=== PATIENT | male | born 1935 | race Caucasian/White ===

== ENCOUNTER 2017-10-27 08:54 | Observation (INO) | payer MEDICARE, BC ==
[2017-10-27] MEDS ORDERED: Sodium Chloride 0.9% 1,000 ML IV SCH (09:45)
[2017-10-27] MEDS ORDERED: Morphine 10 MG/ML SDV IV ONE ×2 (10:21→20:45)
[2017-10-27] MEDS ORDERED: Acetaminophen/HYDROcodone 325-5 MG Tab ONE ×2 (11:38→11:39)
[2017-10-27] MEDS: Metoclopramide 10 MG/2 ML SDV ONE ×2 (12:10→20:32)
[2017-10-27] MEDS ORDERED: HYDROmorphone 2 MG/ML SDV ONE (13:02)
[2017-10-27] MEDS ORDERED: Morphine 10 MG/ML Syringe ONE (20:02)
[2017-10-27] MEDS ORDERED: Morphine 5 MG/ML SDV IV ONE (20:05)
[2017-10-27] MEDS ORDERED: Morphine 2 MG/ML Syringe IV PRN (20:29)
[2017-10-27] MEDS ORDERED: Acetaminophen/HYDROcodone 325-10 MG Tab ONE (21:49)
[2017-10-27] MEDS: Acetaminophen/HYDROcodone 325-5 MG Tab PO PRN (21:50)
[2017-10-28] MEDS ORDERED: Ondansetron 4 MG/2 ML SDV IV PRN (00:43)
[2017-10-28] MEDS ORDERED: Calcium Carbonate/Vitamin D3 1500 MG-400 Units Tab PO SCH (08:00)
[2017-10-28] MEDS ORDERED: amLODIPine 10 MG Tab PO SCH (08:00)
[2017-10-28] MEDS ORDERED: Metoprolol Succinate 25 MG Tab.ER PO SCH (08:00)
[2017-10-28] MEDS ORDERED: Aspirin 81 MG Tab.Chew PO SCH (08:00)
[2017-10-28] MEDS: Acetaminophen/HYDROcodone 325-5 MG Tab PO PRN (08:07)
--- NOTE | 2017-10-28 08:32 | CT ---
DATE OF SERVICE: 10/27/17 CLINICAL DATA: [facility] UNENHANCED CHEST CT: Multislice acquisition through the chest without IV contrast was performed. No priors. There are mild atelectatic changes in the dependent portion of both lungs. There is a 5 mm nodule within the right middle lobe. The lungs are otherwise clear. No pneumothorax. No pleural effusions. The heart size is normal. There are coronary artery calcifications. The patient is status post aortic valve replacement. There is mild prominence of the ascending aorta. It measures 4.2 cm in diameter. No hilar or mediastinal adenopathy. No evidence of mediastinal hematoma. There is a small hiatal hernia. No displaced fractures. IMPRESSION: No acute abnormalities. A 5 mm nodule right middle lobe. If the patient is high risk, a [address] is recommended. If the patient is low risk, no followup required. Other findings as discussed above. UNENHANCED ABDOMEN AND PELVIC CT: Multislice acquisition through the abdomen and pelvis without IV or oral contrast was performed. No priors. There is a small hiatal hernia. The unenhanced liver appears normal. There are multiple calcified gallstones noted within the dependent gallbladder. No pericholecystic fluid. The spleen appears normal. The pancreas appears normal. The right and left adrenals appear normal. There is mild atrophy of both kidneys. No nephrocalcinosis or nephrolithiasis. No hydronephrosis or hydroureter. There is a small amount of fluid within the bladder. It appears normal. The appendix is not dilated. There is diverticulosis of the descending and sigmoid colon. No evidence of diverticulitis. There is an umbilical hernia containing fat. There are bilateral inguinal hernias containing fat. There is a 3.8 cm infrarenal abdominal aortic aneurysm. No evidence of leakage. No free air. No free fluid. No dilated loops of bowel. No adenopathy. There are faint lucencies through the right transverse processes of L2 and L3 suspicious for nondisplaced fractures. No displaced fractures. There does appear to be some fluid in the right scrotum. Scrotal ultrasound is recommended. No other significant findings. [id number] [facility]
--- NOTE | 2017-10-28 08:38 | ER ---
DATE OF SERVICE: 10/27/2017 This is ER summary as well as an observation admit note. 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 Apparently, he went airborne in the forklift and landed back into a hard chair. There was no crush injury, it is just that he landed back hard into his chair after going airborne, he immediately complained of back pain. He did not ambulate, they came and got him out of the cab. He denies that he struck his head. No loss of consciousness. No neck pain noted. When he takes a deep breath, he states his lower back hurts. He denies abdominal pain. PHYSICAL EXAMINATION: HEAD: Atraumatic, normocephalic. Pupils were equal and reactive. Throat is clear. NECK: Supple. Nontender. Range of motion intact. LUNGS: Good air movement. No wheezes, no crackles. HEART: Regular rate and rhythm. Normal S1, S2. ABDOMEN: Soft, nondistended, nontender. Positive bowel sounds. BACK: He has tenderness to palpation of the lumbar paraspinal muscle, except of the lumbar paraspinal muscles, he is able to do straight leg raising minimally. CT scan revealed incidental infrarenal aortic aneurysm 3.5 x 3.2 cm and an ascending aortic aneurysm 4.[address], I was told that this was initially recorded as negative, however when I reviewed it with the radiologist he though that on one of his views, there was a possibility of a transverse process lucencies that could be a fracture. ASSESSMENT: 1. Back pain after injury. Rule out transverse lumbar fracture. 2. Intractable pain. PLAN: In the emergency room, he received IV fluids and IV pain medications, which included morphine and Reglan. However, he still got lightheaded, dizzy, and nauseous with sitting up. We have been tried to give him Antivert, give him some fluids, and some more morphine, who remained in pain. It was felt he should be admitted to the floor for pain management and consideration should be made for an MRI of his back. CARMEN/MIKE /[id number] CAMI
--- NOTE | 2017-10-28 12:33 | PCM.DCSUM1 ---
Discharge Summary - Hospital Course Brief History: 82 yr male admit to observation 10-27-17 for management of pain and observation, post fork lift accident and injury to back. Diagnosis: Stroke: No - Discharge Data Discharge Date: 10/28/17 Discharge Disposition: Home, Self-Care 01 Condition: Good - Patient Summary/Data Recommended Follow-up Testing/Procedures: MRI tomorrow - Patient Instructions Diet: Heart Healthy Diet Activity: Rest and Relax Today Activity, Other: No bending, twisting, jarring of spine until results of MRI Driving: Do Not Drive Showering/Bathing: May Shower (with assist, prevent falls) Notify Provider of: Increased Pain (Monitor for headache, nausea, increase in pain. Limit activity to up in house today and rest and relax.) - Discharge Plan *PRESCRIPTION DRUG MONITORING PROGRAM REVIEWED*: No *COPY OF PRESCRIPTION DRUG MONITORING REPORT IN PATIENT RUDY: No Prescriptions/Med Rec: Hydrocodone/Acetaminophen [Hydrocodon-Acetaminophen 5-325] 1 each PO Q4HR #24 tablet Home Medications: Home Meds Hydrocodone/Acetaminophen [Hydrocodon-Acetaminophen 5-325] 1 each PO Q4HR #24 tablet 10/28/17 [Rx] Patient Handouts: Acetaminophen; Hydrocodone tablets or capsules, Lumbosacral Strain Forms: ED Department Discharge Referrals: PCP,None [Primary Care Provider] - - Discharge Summary/Plan Comment Discharge Summary/Plan Comment: Follow-up MRI tomorrow. Limit activity to up in home today, watch for any increase in pain, headache or nausea. May use hydrocodone (5/325) 1-2 tablets every 4-6 hour as needed for pain. No twisting, bending or jarring of spine. Return to PCP for follow-up end of the week. Pt in agreement with plan and follow-up. - Patient Data Vitals - Most Recent: Last Vital Signs Temp 99 F 10/28/17 08:00 Pulse 69 10/28/17 08:05 Resp 16 10/28/17 08:00 BP 146/68 H 10/28/17 08:06 Pulse Ox 93 L 10/28/17 08:00 Weight - Most Recent: 220 lb I&O - Last 24 hours: Intake & Output 10/27/17 10/28/17 10/28/17 22:59 06:59 14:59 Intake Total 1799 Output Total 1 Balance 1798 Med Orders - Current: Current Medications Hydrocodone Bitart/Acetaminophen ([place] 325-5 Mg) 2 tab PO Q4H PRN PRN Reason: Pain Last Admin: 10/28/17 08:07 Dose: 2 tab Amlodipine Besylate (Norvasc) 10 mg PO DAILY [facility] Last Admin: 10/28/17 08:06 Dose: 10 mg Aspirin (Aspirin) 81 mg PO DAILY [facility] Last Admin: 10/28/17 08:05 Dose: 81 mg Atorvastatin Calcium (Lipitor) 10 mg PO BEDTIME [facility] Calcium Carbonate (Caltrate 600+D 1500 Mg-400 Units) 1 tab PO DAILY [facility] Last Admin: 10/28/17 08:06 Dose: 1 tab Sodium Chloride (Normal Saline) 1,000 mls @ 150 mls/hr IV ASDIRECTED [facility] Last Admin: 10/27/17 09:12 Dose: 150 mls/hr Metoprolol Succinate (Toprol Xl) 25 mg PO DAILY [facility] Last Admin: 10/28/17 08:05 Dose: 25 mg Morphine Sulfate (Morphine) 2 mg IV Q4H PRN PRN Reason: Pain Ondansetron HCl (Zofran) 4 mg IV Q4H PRN PRN Reason: Nausea/Vomiting Discontinued Medications Hydrocodone Bitart/Acetaminophen ([place] 325-5 Mg) Confirm Administered Dose 1 tab .ROUTE .STK-MED ONE Stop: 10/27/17 11:39 Last Admin: 10/27/17 20:32 Dose: Not Given Hydrocodone Bitart/Acetaminophen ([place] 325-5 Mg) Confirm Administered Dose 1 tab .ROUTE .STK-MED ONE Stop: 10/27/17 11:40 Last Admin: 10/27/17 20:32 Dose: Not Given Hydrocodone Bitart/Acetaminophen ([place] 325-10 Mg) Confirm Administered Dose 1 tab .ROUTE .STK-MED ONE Stop: 10/27/17 21:50 Last Admin: 10/27/17 21:50 Dose: 1 tab Hydromorphone HCl (Dilaudid) Confirm Administered Dose 2 mg .ROUTE .STK-MED ONE Stop: 10/27/17 13:03 Last Admin: 10/27/17 12:55 Dose: 2 mg Meclizine HCl (Antivert) Confirm Administered Dose 50 mg .ROUTE .STK-MED ONE Stop: 10/27/17 12:12 Last Admin: 10/27/17 12:05 Dose: 50 mg Metoclopramide HCl (Reglan) Confirm Administered Dose 10 mg .ROUTE .STK-MED ONE Stop: 10/27/17 12:12 Last Admin: 10/27/17 20:32 Dose: Not Given Morphine Sulfate (Morphine) 4 mg IV ONETIME ONE Stop: 10/27/17 10:22 Last Admin: 10/27/17 10:24 Dose: 4 mg Morphine Sulfate (Morphine) Confirm Administered Dose 10 mg .ROUTE .STK-MED ONE Stop: 10/27/17 20:03 Last Admin: 10/27/17 20:32 Dose: Not Given Morphine Sulfate (Morphine) 4 mg IV ONETIME ONE Stop: 10/27/17 20:06 Last Admin: 10/27/17 20:10 Dose: 4 mg Morphine Sulfate (Morphine) 4 mg IV ONETIME ONE Stop: 10/27/17 20:46 Last Admin: 10/27/17 23:17 Dose: Not Given
[2017-10-28] MEDS ORDERED: atorvaSTATin 10 MG Tab PO SCH (20:00)
== END 2017-10-28 13:02 | disposition home or self-care (01) ==
LOC: LB.ED 08:54 → LB.MS 13:30
PROVIDERS: ADMIT Family Medicine; ATTEND Family Medicine
DX: M54.9 Dorsalgia, unspecified (principal)
CPT/HCPCS: 36415; 71250; 74176; 80048; 81001; 85025; 93005; 96361; 96374; 99284-25; A0425; A0429; A9270-GY; J1170; J2270; J2765; J7030

== ENCOUNTER 2017-12-23 23:34 | Emergency (ER) | payer MEDICARE, BC ==
--- NOTE | 2017-12-25 10:17 | EDM.PDOC ---
ED HPI GENERAL MEDICAL PROBLEM - General Chief Complaint: General Stated Complaint: URINARY RETENTION Time Seen by Provider: 12/23/17 23:50 Source of Information: Reports: Patient History Limitations: Reports: No Limitations - History of Present Illness INITIAL COMMENTS - FREE TEXT/NARRATIVE: This is an 82yo M who recently underwent a cystoscopy earlier today and comes in with urinary retention and pressure. Denies any fever or chills or other concerns. Onset: Gradual Duration: Day(s): Location: Reports: Pelvis Quality: Reports: Pressure Bladder Pain Score (Numeric/FACES): 7 - Related Data Allergies Allergy/AdvReac Type Severity Reaction Status Date / Time No Known Allergies Allergy Verified 12/23/17 23:34 Home Meds: Home Meds Hydrocodone/Acetaminophen [Hydrocodon-Acetaminophen 5-325] 1 each PO Q4HR #24 tablet 10/28/17 [Rx] Past Medical History HEENT History: Reports: Hard of Hearing, Impaired Vision Cardiovascular History: Reports: High Cholesterol, Other (See Below) Other Cardiovascular History: valve replacement Genitourinary History: Reports: Other (See Below) Other Genitourinary History: currently has bladder cancer Hematologic History: Reports: None Oncologic (Cancer) History: Reports: Bladder - Infectious Disease History Infectious Disease History: Reports: Chicken Pox - Past Surgical History Male Surgical History: Reports: None Social & Family History - Family History Family Medical History: Noncontributory - Tobacco Use Smoking Status *Q: Unknown Ever Smoked Second Hand Smoke Exposure: No - Caffeine Use Caffeine Use: Reports: Coffee - Recreational Drug Use Recreational Drug Use: No ED ROS GENERAL - Review of Systems Review Of Systems: ROS reveals no pertinent complaints other than HPI. ED EXAM, GENERAL - Physical Exam Exam: See Below Exam Limited By: No Limitations General Appearance: Alert, WD/WN, Mild Distress Nose: Normal Inspection Throat/Mouth: Normal Inspection Head: Atraumatic, Normocephalic Neck: Normal Inspection Respiratory/Chest: No Respiratory Distress Cardiovascular: Normal Peripheral Pulses GI/Abdominal: Tender Course - Vital Signs Last Recorded V/S: Last Vital Signs Temp 35.7 C 12/23/17 23:35 Pulse 74 12/23/17 23:35 Resp 20 12/23/17 23:35 BP 162/65 H 12/23/17 23:35 Pulse Ox 100 12/23/17 23:35 - Re-Assessments/Exams Free Text/Narrative Re-Assessment/Exam: Resolution of symptoms with chicas cath placed. Departure - Departure Time of Disposition: 00:30 Disposition: Home, Self-Care 01 Condition: Good Clinical Impression: Urinary (tract) obstruction - Discharge Information Instructions: Indwelling Urinary Catheter Care, Adult, [id number], Acute Urinary Retention, Male, [id number] Forms: ED Department Discharge Additional Instructions: Keep urinary catheter in place through tonight. Call your regular urologist tomorrow, 12/24/2017, for further instructions. After receiving instructions from your urologist, you can call [facility] at [phone] for any additional appointments you may need. Call with any questions.
== END 2017-12-24 00:15 | disposition home or self-care (01) ==
LOC: LB.ED 23:34
DX: N13.9 Obstructive and reflux uropathy, unspecified (principal); I10 Essential (primary) hypertension; E78.00 Pure hypercholesterolemia, unspecified
CPT/HCPCS: 51702; 51798; 99283-25

== ENCOUNTER 2019-01-19 06:58 | Emergency (ER) | payer MEDICARE, BC ==
--- NOTE | 2019-01-19 09:24 | EDM.PDOC ---
ED HPI GENERAL MEDICAL PROBLEM - General Stated Complaint: UNKNOWN Time Seen by Provider: 01/19/19 07:00 Source of Information: Reports: Patient History Limitations: Reports: No Limitations - History of Present Illness INITIAL COMMENTS - FREE TEXT/NARRATIVE: Pt is a 83 year old male s/p prostatectomy 14 years ago with chronic urinary incontinence for 7 years with bladder cancer who has surveillance cystoscopy every 6 months. He just has his cystoscopy [address] [facility]. Pt claims he constantly dribbles and needs to wear depends all the time. He has not had any dribbling since last night, hence he is here to have his bladder checked. No dysuria. No abdominal pain or discomfort. No back pain, fever or chills. Onset: Today Severity: Mild Improves with: Reports: None Worsens with: Reports: None Associated Symptoms: Denies: Confusion, Chest Pain, Cough, Diaphoresis, Fever/ Chills, Nausea/Vomiting, Rash, Seizure, Shortness of Breath, Syncope, Weakness Bilateral Lower Abdomen Pain Score (Numeric/FACES): 5 - Related Data Allergies Allergy/AdvReac Type Severity Reaction Status Date / Time No Known Allergies Allergy Verified 12/23/17 23:34 Home Meds: Home Meds Hydrocodone/Acetaminophen [Hydrocodon-Acetaminophen 5-325] 1 each PO Q4HR #24 tablet 10/28/17 [Rx] Past Medical History HEENT History: Reports: Hard of Hearing, Impaired Vision Cardiovascular History: Reports: High Cholesterol, Other (See Below) Other Cardiovascular History: valve replacement Genitourinary History: Reports: Other (See Below) Other Genitourinary History: currently has bladder cancer Hematologic History: Reports: None Oncologic (Cancer) History: Reports: Bladder - Infectious Disease History Infectious Disease History: Reports: Chicken Pox - Past Surgical History Male Surgical History: Reports: None Social & Family History - Family History Family Medical History: Noncontributory - Caffeine Use Caffeine Use: Reports: Coffee ED ROS GENERAL - Review of Systems Review Of Systems: See Below Constitutional: Denies: Fever, Chills, Weakness, Diaphoresis HEENT: Reports: Vertigo. Denies: Rhinitis, Throat Pain Respiratory: Denies: Cough, Sputum Cardiovascular: Denies: Chest Pain, Lightheadedness GI/Abdominal: Denies: Abdominal Pain, Constipation, Diarrhea, Nausea, Vomiting : Reports: Incontinence (chronic). Denies: Dysuria, Flank Pain, Frequency, Urgency Musculoskeletal: Denies: Joint Pain, Joint Swelling Skin: Denies: Bruising, Pruritis, Rash ED EXAM, GENERAL - Physical Exam Exam: See Below Exam Limited By: No Limitations General Appearance: Alert, WD/WN, No Apparent Distress Eye Exam: Bilateral Eye: EOMI, PERRL Ears: Normal External Exam, Normal Canal, Hearing Grossly Normal, Normal TMs Ear Exam: Bilateral Ear: Auricle Normal, Canal Normal, TM normal Nose: Normal Inspection, Normal Mucosa, No Blood Throat/Mouth: Normal Inspection, Normal Lips, Normal Teeth, Normal Gums, Normal Oropharynx, Normal Voice, No Airway Compromise Head: Atraumatic, Normocephalic Neck: Normal Inspection, Supple, Non-Tender, Full Range of Motion Respiratory/Chest: No Respiratory Distress, Lungs Clear, Normal Breath Sounds, No Accessory Muscle Use, Chest Non-Tender Cardiovascular: Normal Peripheral Pulses, Regular Rate, Rhythm, No Edema, No Gallop, No JVD, No Murmur, No Rub GI/Abdominal: Normal Bowel Sounds, Non-Tender, No Organomegaly, Other (midline scar int he suprpubic area. There is bladder palpable in suprapubic region) Course - Vital Signs Text/Narrative:: Bladder scan done show 4oocc of urine in the bladder. Bladder catheterized, there is some sediment drained followed by clear urine about 350ccs. Pt reassured that he might have had mechanical obstruction from the sediments. He is dripping urine from his incontinence. Pt reassured. advised to followup with his urologist if symptoms persists. Last Recorded V/S: Last Vital Signs Temp 97.2 F 01/19/19 07:43 Pulse 58 L 01/19/19 07:43 Resp 16 01/19/19 07:43 BP 174/77 H 01/19/19 07:43 Pulse Ox 99 01/19/19 07:43 Departure - Departure Time of Disposition: 07:45 Disposition: Home, Self-Care 01 Condition: Fair Clinical Impression: Urinary retention - Discharge Information *PRESCRIPTION DRUG MONITORING PROGRAM REVIEWED*: Not Applicable *COPY OF PRESCRIPTION DRUG MONITORING REPORT IN PATIENT RUDY: Not Applicable Instructions: Acute Urinary Retention, Male, [id number] Referrals: PCP,None [Primary Care Provider] - Care Plan Goals: Attempt to void every 4 hrs. Return to ER if symptoms return or worsen. Continue to take medications as prescribed. Follow up as needed. - Problem List & Annotations (1) Urinary (tract) obstruction SNOMED Code(s): 6869540 Code(s): N13.9 - OBSTRUCTIVE AND REFLUX UROPATHY, UNSPECIFIED Status: Acute (2) Urinary retention SNOMED Code(s): 806993797 Code(s): R33.9 - RETENTION OF URINE, UNSPECIFIED Status: Acute - Problem List Review Problem List Initiated/Reviewed/Updated: Yes - Assessment/Plan Assessment:: Urinary retention with obstruction Plan: Bladder scan done show 4oocc of urine in the bladder. Bladder catheterized, there is some sediment drained followed by clear urine about 350ccs. Pt reassured that he might have had mechanical obstruction from the sediments. He is dripping urine from his incontinence. Pt reassured. advised to followup with his urologist if symptoms persists.
== END 2019-01-19 07:45 | disposition home or self-care (01) ==
LOC: LB.ED 06:58
DX: R33.9 Retention of urine, unspecified (principal); C67.9 Malignant neoplasm of bladder, unspecified
CPT/HCPCS: 51702; 51798; 99283-25

== ENCOUNTER 2019-01-19 12:25 | Emergency (ER) | payer MEDICARE, BC ==
--- NOTE | 2019-01-19 13:21 | EDM.PDOC ---
ED HPI GENERAL MEDICAL PROBLEM - General Chief Complaint: Genitourinary Problem Stated Complaint: Urinary retention Time Seen by Provider: 01/19/19 12:45 Source of Information: Reports: Patient History Limitations: Reports: No Limitations - History of Present Illness INITIAL COMMENTS - FREE TEXT/NARRATIVE: This is a 83yo M with history of Prostate CA here for urinary retention. He was seen by his urologist Dr. Lopez in and had a recent cystoscopy. He denies any dilation at the time. He came in this am for urinary retention and after a chicas was placed he voided 400+ mL and now has returned with the same symptoms of pressure and suprapelvic discomfort and fullness with very little urination. Duration: Getting Worse Quality: Reports: Ache, Pressure Severity: Moderate Improves with: Reports: None Worsens with: Reports: None Middle Abdomen Pain Score (Numeric/FACES): 7 - Related Data Allergies Allergy/AdvReac Type Severity Reaction Status Date / Time No Known Allergies Allergy Verified 12/23/17 23:34 Home Meds: Home Meds Hydrocodone/Acetaminophen [Hydrocodon-Acetaminophen 5-325] 1 each PO Q4HR #24 tablet 10/28/17 [Rx] Past Medical History HEENT History: Reports: Hard of Hearing, Impaired Vision Cardiovascular History: Reports: High Cholesterol, Other (See Below) Other Cardiovascular History: valve replacement Genitourinary History: Reports: Other (See Below) Other Genitourinary History: currently has bladder cancer Hematologic History: Reports: None Oncologic (Cancer) History: Reports: Bladder - Infectious Disease History Infectious Disease History: Reports: Chicken Pox - Past Surgical History Male Surgical History: Reports: None Social & Family History - Family History Family Medical History: Noncontributory - Caffeine Use Caffeine Use: Reports: Coffee ED ROS GENERAL - Review of Systems Review Of Systems: ROS reveals no pertinent complaints other than HPI. ED EXAM, RENAL/ - Physical Exam Exam: See Below Exam Limited By: No Limitations General Appearance: Alert, WD/WN, Mild Distress Eye Exam: Bilateral Eye: EOMI, PERRL Ears: Normal External Exam Nose: Normal Inspection Throat/Mouth: Normal Inspection Head: Atraumatic, Normocephalic Neck: Normal Inspection, Supple, Non-Tender Respiratory/Chest: No Respiratory Distress, Lungs Clear GI/Abdominal: Tender (suprapubic tenderness) Back Exam: Normal Inspection Course - Vital Signs Last Recorded V/S: Last Vital Signs Temp 36.5 C 01/19/19 12:30 Pulse 64 01/19/19 12:30 Resp 16 01/19/19 12:30 BP 154/63 H 01/19/19 12:30 Pulse Ox 99 01/19/19 12:30 Departure - Departure Time of Disposition: 13:10 Disposition: Home, Self-Care 01 Condition: Good Clinical Impression: 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 Keep cathetar in place until you see Dr Lopez. Return to ER with any other concerns or problems that arise. 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 Patient has had prior dilation a few times before. No other issues or concerns and counseled on f/u if any further concerns or new issues. Chicas left in until he is able to see Urology for management within a week. Counseled on risks of UTI due to chicas and that we do not want the chicas in for more than 7 days. F/u as needed.
== END 2019-01-19 13:20 | disposition home or self-care (01) ==
LOC: LB.ED 12:25
DX: N35.919 Unspecified urethral stricture, male, unspecified site (principal); C67.9 Malignant neoplasm of bladder, unspecified
CPT/HCPCS: 51702; 99283

== ENCOUNTER 2019-12-28 11:41 | Emergency (ER) | payer MEDICARE, BC, OTHER ==
--- NOTE | 2019-12-28 12:17 | EDM.PDOC ---
ED HPI GENERAL MEDICAL PROBLEM - General Stated Complaint: STROKE Time Seen by Provider: 12/28/19 11:55 Source of Information: Reports: Patient, EMS History Limitations: Reports: No Limitations - History of Present Illness INITIAL COMMENTS - FREE TEXT/NARRATIVE: patient had a sudden onset of left leg weakness at 0930 this AM. He was able to sit and take a BP which was 190's. 911 was called. He denies having any other symptoms at the time. symptoms have resolved at this time. Onset: Today Onset Date: 12/28/19 Onset Time: 09:30 Duration: Resolved Prior to Arrival Improves with: Reports: None Worsens with: Reports: None Associated Symptoms: Reports: No Other Symptoms - Related Data Allergies Allergy/AdvReac Type Severity Reaction Status Date / Time No Known Allergies Allergy Verified 12/28/19 13:03 Home Meds: Home Meds Aspirin [Halfprin] 81 mg PO DAILY 12/28/19 [History] Calcium Carbonate/Vitamin D3 [Os-Zeke 500+D] 1 each PO DAILY 12/28/19 [History] Metoprolol Succinate [Toprol XL] 25 mg PO DAILY 12/28/19 [History] Omeprazole 20 mg PO DAILY 12/28/19 [History] amLODIPine Besylate [Amlodipine Besylate] 10 mg PO DAILY 12/28/19 [History] atorvaSTATin [Lipitor] 0.5 tab PO BEDTIME 12/28/19 [History] Past Medical History HEENT History: Reports: Hard of Hearing, Impaired Vision Cardiovascular History: Reports: High Cholesterol, Other (See Below) Other Cardiovascular History: valve replacement Genitourinary History: Reports: Other (See Below) Other Genitourinary History: currently has bladder cancer Hematologic History: Reports: None Oncologic (Cancer) History: Reports: Bladder - Infectious Disease History Infectious Disease History: Reports: Chicken Pox - Past Surgical History Male Surgical History: Reports: None Social & Family History - Family History Family Medical History: Noncontributory - Caffeine Use Caffeine Use: Reports: Coffee ED ROS GENERAL - Review of Systems Review Of Systems: See Below Constitutional: Reports: Weakness (left leg) HEENT: Reports: No Symptoms Respiratory: Reports: No Symptoms Cardiovascular: Reports: No Symptoms Endocrine: Reports: No Symptoms GI/Abdominal: Reports: No Symptoms : Reports: Incontinence (baseline) Musculoskeletal: Reports: No Symptoms Skin: Reports: No Symptoms Neurological: Reports: Dizziness, Weakness Psychiatric: Reports: No Symptoms Hematologic/Lymphatic: Reports: No Symptoms Immunologic: Reports: No Symptoms ED EXAM, NEURO - Physical Exam Exam: See Below Exam Limited By: No Limitations General Appearance: Alert, No Apparent Distress Eye Exam: Bilateral Eye: PERRL Ears: Normal External Exam, Normal Canal, Normal TMs Nose: Normal Inspection, Normal Mucosa, No Blood Throat/Mouth: Normal Inspection, Normal Lips (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 No: Lymphadenopathy (R), Lymphadenopathy (L) Respiratory/Chest: No Respiratory Distress, Lungs Clear, Normal Breath Sounds, No Accessory Muscle Use, Chest Non-Tender Cardiovascular: Normal Peripheral Pulses, No JVD, No Murmur GI/Abdominal: Normal Bowel Sounds, Soft, Non-Tender Neurological: Alert, Normal Mood/Affect, Normal Dorsiflexion, CN II-XII Intact, Normal Plantar Flexion, Normal Reflexes, No Motor/Sensory Deficits, Oriented x 3. No: Ataxia DTR: 2+: Achilles (R), Achilles (L), 3+: Achilles (R), Achilles (L) Back Exam: Normal Inspection, Full Range of Motion Extremities: Normal Inspection, Normal Range of Motion, Pedal Edema (baseline per pt) Psychiatric: Normal Affect, Normal Mood Skin Exam: Warm, Dry, Intact Course - Vital Signs Last Recorded V/S: Last Vital Signs Temp 97.8 F 12/28/19 11:44 Pulse 74 12/28/19 15:01 Resp 21 H 12/28/19 15:01 BP 166/76 H 12/28/19 15:01 Pulse Ox 95 12/28/19 15:01 - Orders/Labs/Meds Labs: Laboratory Tests 12/28/19 12/28/19 12/28/19 Range/Units 11:44 11:44 12:30 WBC 6.9 (4.0-11.0) K/uL RBC 4.65 (4.50-6.50) M/uL Hgb 13.0 (13.0-18.0) g/dL Hct 39.2 L (40.0-54.0) % MCV 84 (76-96) fL MCH 28.0 (27.0-32.0) pg MCHC 33.2 (31.0-35.0) g/dL RDW 14.4 (11.0-16.0) % Plt Count 218 D (150-400) K/uL MPV 9.2 (6.0-10.0) fL Neut % (Auto) 63.9 (45.0-70.0) % Lymph % (Auto) 22.5 (20.0-40.0) % Kaufman % (Auto) 11.3 H (3.0-10.0) % Eos % (Auto) 1.7 (1.0-5.0) % Baso % (Auto) 0.6 H (0.0-0.5) % Neut # (Auto) 4.39 (2.00-7.50) K/uL Lymph # (Auto) 1.55 (1.50-4.00) K/uL Kaufman # (Auto) 0.78 (0.20-0.80) K/uL Eos # (Auto) 0.12 (0.04-0.40) K/uL Baso # (Auto) 0.04 (0.02-0.10) K/uL Sodium 143 (136-145) mmol/L Potassium 3.9 (3.5-5.1) mmol/L Chloride 106 (98-107) mmol/L Carbon Dioxide 25.5 (21.0-32.0) mmol/L Anion Gap 15.4 H (5.0-15.0) mmol/L BUN 24 (8-26) mg/dL Creatinine 1.65 H (0.70-1.30) mg/dL Est Cr Clr Drug Dosing TNP Estimated GFR (MDRD) 40 L (>60) MLS/MIN BUN/Creatinine Ratio 14.5 (6-25) Glucose 92 D (74-100) mg/dL Calcium 8.2 L (8.5-10.1) mg/dL Total Bilirubin 0.4 (0.0-1.0) mg/dL AST 17 (15-37) U/L ALT 28 (12-78) U/L Alkaline Phosphatase 87 (46-116) U/L Troponin I < 0.017 (0.000-0.060) ng/mL Total Protein 7.5 (6.4-8.2) g/dL Albumin 3.4 (3.4-5.0) g/dL Globulin 4.1 (2.2-4.2) g/dL Albumin/Globulin Ratio 0.8 (0.8-2.0) SARS CoV-2 RNA Rapid NADINE 12/28/19 Range/Units 13:10 WBC (4.0-11.0) K/uL RBC (4.50-6.50) M/uL Hgb (13.0-18.0) g/dL Hct (40.0-54.0) % MCV (76-96) fL MCH (27.0-32.0) pg MCHC (31.0-35.0) g/dL RDW (11.0-16.0) % Plt Count (150-400) K/uL MPV (6.0-10.0) fL Neut % (Auto) (45.0-70.0) % Lymph % (Auto) (20.0-40.0) % Kaufman % (Auto) (3.0-10.0) % Eos % (Auto) (1.0-5.0) % Baso % (Auto) (0.0-0.5) % Neut # (Auto) (2.00-7.50) K/uL Lymph # (Auto) (1.50-4.00) K/uL Kaufman # (Auto) (0.20-0.80) K/uL Eos # (Auto) (0.04-0.40) K/uL Baso # (Auto) (0.02-0.10) K/uL Sodium (136-145) mmol/L Potassium (3.5-5.1) mmol/L Chloride (98-107) mmol/L Carbon Dioxide (21.0-32.0) mmol/L Anion Gap (5.0-15.0) mmol/L BUN (8-26) mg/dL Creatinine (0.70-1.30) mg/dL Est Cr Clr Drug Dosing Estimated GFR (MDRD) (>60) MLS/MIN BUN/Creatinine Ratio (6-25) Glucose (74-100) mg/dL Calcium (8.5-10.1) mg/dL Total Bilirubin (0.0-1.0) mg/dL AST (15-37) U/L ALT (12-78) U/L Alkaline Phosphatase (46-116) U/L Troponin I (0.000-0.060) ng/mL Total Protein (6.4-8.2) g/dL Albumin (3.4-5.0) g/dL Globulin (2.2-4.2) g/dL Albumin/Globulin Ratio (0.8-2.0) SARS CoV-2 RNA Rapid NADINE Negative Departure - Departure Time of Disposition: 15:25 Disposition: DC/Tfer to Acute Hospital 02 Condition: Good Clinical Impression: CVA (cerebral vascular accident) Qualifiers: CVA mechanism: unspecified Qualified Code(s): I63.9 - Cerebral infarction, unspecified - Discharge Information *PRESCRIPTION DRUG MONITORING PROGRAM REVIEWED*: Not Applicable *COPY OF PRESCRIPTION DRUG MONITORING REPORT IN PATIENT RUDY: Not Applicable Instructions: Physical Therapy After a Stroke Referrals: PCP,None [Primary Care Provider] - Forms: ED Department Discharge
--- NOTE | 2019-12-28 13:17 | CT ---
DATE OF SERVICE: 12/28/19 CLINICAL DATA: Weakness left leg. UNENHANCED BRAIN: No priors. There is diffuse atrophy. There are periventricular lucencies bilaterally consistent with small vessel ischemic change. There is a focal lucency in the left basal ganglia consistent with old lacunar infarct. No masses or mass effect. No intracranial hemorrhage. No evidence of acute or subacute infarct. No osseous abnormalities. IMPRESSION: No acute intracranial abnormalities. [id number] [facility]
== END 2019-12-28 15:10 ==
LOC: LB.ED 11:41
DX: I63.9 Cerebral infarction, unspecified (principal); E78.00 Pure hypercholesterolemia, unspecified; Z20.828 Contact with and (suspected) exposure to other viral communicable diseases; Z79.82 Long term (current) use of aspirin
CPT/HCPCS: 36415; 70450; 80053; 84484; 85025; 93005; 99285; U0002; A0425; A0429

== ENCOUNTER 2020-09-29 08:20 | Emergency (ER) | payer MEDICARE, BC ==
--- NOTE | 2020-09-29 09:17 | EDM.PDOC ---
ED HPI GENERAL MEDICAL PROBLEM - General Chief Complaint: Back Pain or Injury Stated Complaint: 09/23/20 HIP PAIN FROM STEP OUT TRAILER Time Seen by Provider: 09/29/20 08:30 Source of Information: Reports: Patient History Limitations: Reports: No Limitations - History of Present Illness INITIAL COMMENTS - FREE TEXT/NARRATIVE: patient presented to the ER with a c/o lower back pain for 7-10 days. Reports that it started after he was trying to step down from his vehicle. no fall. He felt a little sharp pain in the right lower back that progressed slowly and got worse over time. no pain while resting, but mainly while moving. 4-5 in intensity. no radiation. No numbness or tingling. have tried ibuprofen for pain with minimal response. h/o prostate and bladder cancer in the past. Duration: Day(s): (10) Location: Reports: Back Quality: Reports: Ache Severity: Mild Right Hip Pain Score (Numeric/FACES): 9 - Related Data Allergies Allergy/AdvReac Type Severity Reaction Status Date / Time No Known Allergies Allergy Verified 09/29/20 08:38 Home Meds: Home Meds Aspirin [Halfprin] 81 mg PO DAILY 12/28/19 [History] Calcium Carbonate/Vitamin D3 [Os-Zeke 500+D] 1 each PO DAILY 12/28/19 [History] Metoprolol Succinate [Toprol XL] 25 mg PO DAILY 12/28/19 [History] amLODIPine Besylate [Amlodipine Besylate] 10 mg PO DAILY 12/28/19 [History] atorvaSTATin [Lipitor] 0.5 tab PO BEDTIME 12/28/19 [History] Cyclobenzaprine [Flexeril] 10 mg PO BEDTIME #15 tab 09/29/20 [Rx] Past Medical History HEENT History: Reports: Hard of Hearing, Impaired Vision Cardiovascular History: Reports: High Cholesterol, Other (See Below) Other Cardiovascular History: valve replacement Gastrointestinal History: Reports: GERD Genitourinary History: Reports: Other (See Below) Other Genitourinary History: has had low grade bladder cancer for many years per pt. Hematologic History: Reports: None Oncologic (Cancer) History: Reports: Bladder - Infectious Disease History Infectious Disease History: Reports: Chicken Pox - Past Surgical History Male Surgical History: Reports: None Social & Family History - Family History Family Medical History: No Pertinent Family History - Caffeine Use Caffeine Use: Reports: Coffee ED ROS GENERAL - Review of Systems Review Of Systems: See Below Constitutional: Reports: No Symptoms HEENT: Reports: No Symptoms Respiratory: Reports: No Symptoms Cardiovascular: Reports: No Symptoms GI/Abdominal: Reports: No Symptoms Musculoskeletal: Reports: Back Pain Skin: Reports: No Symptoms Neurological: Reports: No Symptoms Psychiatric: Reports: No Symptoms ED EXAM,LOWER BACK PAIN/INJURY - Physical Exam Exam: See Below Exam Limited By: No Limitations General Appearance: Alert, WD/WN, No Apparent Distress Eye Exam: Bilateral Eye: EOMI Respiratory/Chest: No Respiratory Distress Cardiovascular: Regular Rate, Rhythm Back Exam: Muscle Spasm Extremities: Normal Inspection Neurological: Alert, Normal Mood/Affect Course - Vital Signs Last Recorded V/S: Last Vital Signs Temp 36.4 C 09/29/20 08:27 Pulse 74 09/29/20 08:27 Resp 18 09/29/20 08:27 BP 166/71 H 09/29/20 08:27 Pulse Ox 99 09/29/20 08:27 - Orders/Labs/Meds Orders: Active Orders 24 hr Category Date Time Status Hip Min 2V or 3V w Pelvis Rt [CR] Stat Exams 09/29/20 08:37 Taken Lumbar Spine 2 or 3V [CR] Stat Exams 09/29/20 08:35 Taken - Re-Assessments/Exams Free Text/Narrative Re-Assessment/Exam: 09/29/20 09:22 xray L spine and hip area -- no e/o acute fracture, but there is a evidence of anterolisthesis L5-sacral area. also evidence of old surgical fixation of L1. don't see an evidence of bony metastasis. Departure - Departure Time of Disposition: 09:14 Disposition: Home, Self-Care 01 Condition: Good Clinical Impression: Back pain Qualifiers: Back pain location: low back pain Chronicity: acute Back pain laterality: right Sciatica presence: without sciatica Qualified Code(s): M54.5 - Low back pain - Discharge Information *PRESCRIPTION DRUG MONITORING PROGRAM REVIEWED*: Not Applicable *COPY OF PRESCRIPTION DRUG MONITORING REPORT IN PATIENT RUDY: Not Applicable Prescriptions: Cyclobenzaprine [Flexeril] 10 mg PO BEDTIME #15 tab Instructions: Acute Back Pain, Adult, Muscle Strain, [id number] Referrals: PCP,None [Primary Care Provider] - Forms: ED Department Discharge Additional Instructions: - take tylenol for pain as needed * - recommend to apply a heating pad on the affected area to relax the muscles * recommend to see a chiropractor for back exercises and adjustment * if pain persists beyond 4 weeks without improvement - then recommend to obtain a CT scan on lower back to rule out other causes for pain Sepsis Event Note (ED) - Evaluation Sepsis Screening Result: No Definite Risk - Focused Exam Vital Signs: Vital Signs Temp Pulse Resp BP Pulse Ox 09/29/20 08:27 36.4 C 74 18 166/71 H 99 - Problem List & Annotations (1) Intractable pain SNOMED Code(s): 68697522 Code(s): R52 - PAIN, UNSPECIFIED Status: Acute Priority: Low Current Visit: No Onset Date: ~10/26/17 Annotation/Comment:: 10/26/17 - 1. Back pain after injury. Rule out transverse lumbar fracture. 2. Intractable pain. (2) Back pain SNOMED Code(s): 448052866 Code(s): M54.9 - DORSALGIA, UNSPECIFIED Status: Acute Priority: Low Current Visit: Yes Onset Date: ~10/26/17 Annotation/Comment:: 10/26/17 - 1. Back pain after injury. Rule out transverse lumbar fracture. 2. Intractable pain. Qualifiers: Back pain location: low back pain Chronicity: acute Back pain laterality: right Sciatica presence: without sciatica Qualified Code(s): M54.5 - Low back pain - Problem List Review Problem List Initiated/Reviewed/Updated: Yes - My Orders Last 24 Hours: My Active Orders 09/29/20 08:35 Lumbar Spine 2 or 3V [CR] Stat 09/29/20 08:37 Hip Min 2V or 3V w Pelvis Rt [CR] Stat - Assessment/Plan Last 24 Hours: My Active Orders 09/29/20 08:35 Lumbar Spine 2 or 3V [CR] Stat 09/29/20 08:37 Hip Min 2V or 3V w Pelvis Rt [CR] Stat Plan: - take tylenol for pain as needed * - recommend to apply a heating pad on the affected area to relax the muscles * recommend to see a chiropractor for back exercises and adjustment * if pain persists beyond 4 weeks without improvement - then recommend to obtain a CT scan on lower back to rule out other causes for pain like a metastasis.
--- NOTE | 2020-09-29 11:21 | CR ---
DATE OF SERVICE: 09/29/20 CLINICAL DATA: back pain LUMBAR SPINE: No priors. There is diffuse osteopenia. The patient is status post vertebroplasty. There is compression deformity of the L1 vertebra with approximately 40 to 50% loss of height anteriorly. The remaining vertebral bodies are of average height and in good alignment. 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 No acute abnormalities. No focal lytic or blastic bone lesions. There is a moderate amount of stool noted in the visualized ascending and transverse colon. [id number] [facility]
--- NOTE | 2020-09-29 11:24 | CR ---
Date of Service: 09/29/20 Clinical Data: hip pain PELVIS AND RIGHT HIP: No priors. There is diffuse osteopenia. 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 There are degenerative changes involving the SI joints and symphysis pubis. There is degenerative disk disease at multiple levels in the lower lumbar spine. No acute fracture or dislocation. No lytic or blastic bone lesions. There are numerous surgical clips in the pelvis. [id number] [facility]
== END 2020-09-29 09:25 | disposition home or self-care (01) ==
LOC: LB.ED 08:20
DX: M54.5 Low back pain (principal); E78.00 Pure hypercholesterolemia, unspecified; Z79.82 Long term (current) use of aspirin; Z79.899 Other long term (current) drug therapy
CPT/HCPCS: 72100; 73502-RT; 99283-25

== ENCOUNTER 2020-10-02 05:22 | Emergency (ER) | payer MEDICARE, BC ==
--- NOTE | 2020-10-02 06:40 | EDM.PDOC ---
ED HPI GENERAL MEDICAL PROBLEM - General Chief Complaint: ENT Problem Stated Complaint: NOSE BLEED Time Seen by Provider: 10/02/20 06:15 Source of Information: Reports: Patient History Limitations: Reports: No Limitations - History of Present Illness INITIAL COMMENTS - FREE TEXT/NARRATIVE: presented to the ER with a sudden onset of nasal bleed. no trauma or injury on Xarelto for a h/o afib. denies SOB or CP He applied pressure on it - bleeding stopped upon arrival to the ER Onset: Sudden Duration: Hour(s): (1) - Related Data Allergies Allergy/AdvReac Type Severity Reaction Status Date / Time No Known Allergies Allergy Verified 10/02/20 06:14 Home Meds: Home Meds Aspirin [Halfprin] 81 mg PO DAILY 12/28/19 [History] Calcium Carbonate/Vitamin D3 [Os-Zeke 500+D] 1 each PO DAILY 12/28/19 [History] Metoprolol Succinate [Toprol XL] 25 mg PO DAILY 12/28/19 [History] amLODIPine Besylate [Amlodipine Besylate] 10 mg PO DAILY 12/28/19 [History] atorvaSTATin [Lipitor] 0.5 tab PO BEDTIME 12/28/19 [History] Cyclobenzaprine [Flexeril] 10 mg PO BEDTIME #15 tab 09/29/20 [Rx] Apixaban [Eliquis] 2.5 mg PO BID 10/02/20 [History] Past Medical History HEENT History: Reports: Hard of Hearing, Impaired Vision Cardiovascular History: Reports: High Cholesterol, Other (See Below) Other Cardiovascular History: valve replacement Gastrointestinal History: Reports: GERD Genitourinary History: Reports: Other (See Below) Other Genitourinary History: has had low grade bladder cancer for many years per pt. Hematologic History: Reports: None Oncologic (Cancer) History: Reports: Bladder - Infectious Disease History Infectious Disease History: Reports: Chicken Pox, Measles, Mumps - Past Surgical History Male Surgical History: Reports: None Social & Family History - Family History Family Medical History: No Pertinent Family History - Tobacco Use Tobacco Use Status *Q: Never Tobacco User - Caffeine Use Caffeine Use: Reports: Coffee ED ROS ENT - Review of Systems Review Of Systems: See Below Constitutional: Reports: No Symptoms HEENT: Reports: Nosebleed Respiratory: Reports: No Symptoms Cardiovascular: Reports: No Symptoms GI/Abdominal: Reports: No Symptoms Musculoskeletal: Reports: No Symptoms Skin: Reports: No Symptoms Neurological: Reports: No Symptoms ED EXAM, ENT - Physical Exam Exam: See Below Exam Limited By: No Limitations General Appearance: Alert, WD/WN, No Apparent Distress Eye Exam: Bilateral Eye: EOMI Nose: Dried Blood. No: Active Bleeding Mouth/Throat: Normal Inspection Head: Atraumatic, Normocephalic Respiratory/Chest: No Respiratory Distress, Lungs Clear Cardiovascular: Normal Peripheral Pulses Neurological: Alert, Oriented Course - Vital Signs Last Recorded V/S: Last Vital Signs Temp 36.6 C 10/02/20 05:57 Pulse 74 10/02/20 05:57 Resp 18 10/02/20 05:57 BP 150/77 H 10/02/20 05:57 Pulse Ox 96 10/02/20 05:57 - Re-Assessments/Exams Free Text/Narrative Re-Assessment/Exam: upon examination - no active bleeding was seen only dried blood talking and tolerating PO intake without problems Departure - Departure Time of Disposition: 06:40 Disposition: Home, Self-Care 01 Condition: Good Clinical Impression: Epistaxis - Discharge Information *PRESCRIPTION DRUG MONITORING PROGRAM REVIEWED*: Not Applicable *COPY OF PRESCRIPTION DRUG MONITORING REPORT IN PATIENT RUDY: Not Applicable Instructions: Nosebleed, [id number] Referrals: PCP,Unknown [Primary Care Provider] - Forms: ED Department Discharge Additional Instructions: Follow up as needed apply pressure and nasal clip if bleeding reoccurred Sepsis Event Note (ED) - Evaluation Sepsis Screening Result: No Definite Risk - Focused Exam Vital Signs: Vital Signs Temp Pulse Resp BP Pulse Ox 10/02/20 05:57 36.6 C 74 18 150/77 H 96 - Problem List & Annotations (1) Epistaxis SNOMED Code(s): 616583724 Code(s): R04.0 - EPISTAXIS Status: Acute Priority: Low - Problem List Review Problem List Initiated/Reviewed/Updated: Yes - Assessment/Plan Plan: Follow up as needed apply pressure and nasal clip if bleeding reoccurred
== END 2020-10-02 06:39 | disposition home or self-care (01) ==
LOC: LB.ED 05:22
DX: R04.0 Epistaxis (principal); E78.00 Pure hypercholesterolemia, unspecified; I48.91 Unspecified atrial fibrillation; Z79.01 Long term (current) use of anticoagulants; Z79.82 Long term (current) use of aspirin; Z79.899 Other long term (current) drug therapy
CPT/HCPCS: 30901; 99283

== ENCOUNTER 2020-10-02 08:25 | Emergency (ER) | payer MEDICARE, BC ==
--- NOTE | 2020-10-02 10:22 | EDM.PDOC ---
ED HPI GENERAL MEDICAL PROBLEM - General Chief Complaint: General Stated Complaint: nosebleed Time Seen by Provider: 10/02/20 09:50 Source of Information: Reports: Patient History Limitations: Reports: No Limitations - History of Present Illness INITIAL COMMENTS - FREE TEXT/NARRATIVE: returned to the ER with a nasal bleed. Reports that he sneezed earlier today which caused the bleeding to restart again. on Xarelto for a h/o afib. no fever or CP. no dizziness or palpitations. no SOB. Onset: Sudden Duration: Hour(s): (1) - Related Data Allergies Allergy/AdvReac Type Severity Reaction Status Date / Time No Known Allergies Allergy Verified 10/02/20 06:14 Home Meds: Home Meds Aspirin [Halfprin] 81 mg PO DAILY 12/28/19 [History] Calcium Carbonate/Vitamin D3 [Os-Zeke 500+D] 1 each PO DAILY 12/28/19 [History] Metoprolol Succinate [Toprol XL] 25 mg PO DAILY 12/28/19 [History] amLODIPine Besylate [Amlodipine Besylate] 10 mg PO DAILY 12/28/19 [History] atorvaSTATin [Lipitor] 0.5 tab PO BEDTIME 12/28/19 [History] Cyclobenzaprine [Flexeril] 10 mg PO BEDTIME #15 tab 09/29/20 [Rx] Apixaban [Eliquis] 2.5 mg PO BID 10/02/20 [History] Past Medical History HEENT History: Reports: Epistaxis, Hard of Hearing, Impaired Vision Cardiovascular History: Reports: Afib, High Cholesterol, Stents, Other (See Below) Other Cardiovascular History: valve replacement Gastrointestinal History: Reports: GERD Genitourinary History: Reports: Other (See Below) Other Genitourinary History: has had low grade bladder cancer for many years per pt. Hematologic History: Reports: None Oncologic (Cancer) History: Reports: Bladder - Infectious Disease History Infectious Disease History: Reports: Chicken Pox, Measles, Mumps - Past Surgical History Male Surgical History: Reports: None Social & Family History - Family History Family Medical History: No Pertinent Family History - Tobacco Use Tobacco Use Status *Q: Never Tobacco User - Caffeine Use Caffeine Use: Reports: Coffee ED ROS GENERAL - Review of Systems Review Of Systems: See Below Constitutional: Reports: No Symptoms HEENT: Reports: Nosebleed Respiratory: Reports: No Symptoms Cardiovascular: Reports: No Symptoms GI/Abdominal: Reports: No Symptoms Musculoskeletal: Reports: No Symptoms Skin: Reports: No Symptoms Neurological: Reports: No Symptoms ED EXAM, GENERAL - Physical Exam Exam: See Below Exam Limited By: No Limitations General Appearance: Alert, WD/WN Eye Exam: Bilateral Eye: EOMI Nose: Other (dried blood - small avtive bleeding on the lower end of nasal septum) Head: Atraumatic Neck: Normal Inspection Respiratory/Chest: No Respiratory Distress Cardiovascular: Normal Peripheral Pulses, Regular Rate, Rhythm GI/Abdominal: Normal Bowel Sounds Extremities: Normal Inspection Neurological: Alert, Oriented, No Motor/Sensory Deficits Course - Vital Signs Last Recorded V/S: Last Vital Signs Temp 36.4 C 10/02/20 08:50 Pulse 70 10/02/20 08:50 Resp 16 10/02/20 08:50 BP 177/105 H 10/02/20 08:50 Pulse Ox 99 10/02/20 08:50 - Re-Assessments/Exams Free Text/Narrative Re-Assessment/Exam: chemical cautery with silver nitrates nasal packing with rhino-rocket - well tolerated no more bleeding Departure - Departure Time of Disposition: 10:21 Disposition: Home, Self-Care 01 Condition: Good Clinical Impression: Epistaxis - Discharge Information *PRESCRIPTION DRUG MONITORING PROGRAM REVIEWED*: Not Applicable *COPY OF PRESCRIPTION DRUG MONITORING REPORT IN PATIENT RUDY: Not Applicable Instructions: Nosebleed, [id number] Referrals: Damien Nance MD [Primary Care Provider] - Forms: ED Department Discharge Sepsis Event Note (ED) - Evaluation Sepsis Screening Result: No Definite Risk - Focused Exam Vital Signs: Vital Signs Temp Pulse Resp BP Pulse Ox 10/02/20 08:50 36.4 C 70 16 177/105 H 99 - Problem List & Annotations (1) Epistaxis SNOMED Code(s): 663140926 Code(s): R04.0 - EPISTAXIS Status: Acute Priority: Low - Problem List Review Problem List Initiated/Reviewed/Updated: Yes - Assessment/Plan Plan: keep nasal packing in place recommend to control your blood pressure avoid excessive activities today drink plenty of fluids
== END 2020-10-02 10:20 | disposition home or self-care (01) ==
LOC: SUPCPDRO 08:25 → LB.ED 08:25
DX: R04.0 Epistaxis (principal); I48.91 Unspecified atrial fibrillation; E78.00 Pure hypercholesterolemia, unspecified; Z95.5 Presence of coronary angioplasty implant and graft; Z79.82 Long term (current) use of aspirin; Z79.01 Long term (current) use of anticoagulants; Z79.899 Other long term (current) drug therapy
CPT/HCPCS: 30903; 99282-25; A0425; A0429

== ENCOUNTER 2021-10-02 09:58 | Emergency (ER) | payer MEDICARE, BC | END 2021-10-02 11:05 | disposition home or self-care (01) | LOC: LB.ED 09:58 | DX: K40.90 Unilateral inguinal hernia, without obstruction or gangrene, not specified as recurrent (principal); I11.0 Hypertensive heart disease with heart failure; I50.9 Heart failure, unspecified; I48.91 Unspecified atrial fibrillation; Z79.01 Long term (current) use of anticoagulants; Z79.899 Other long term (current) drug therapy | CPT/HCPCS: 99281; 99283 ==

== ENCOUNTER 2021-10-04 13:35 | Emergency (ER) | payer MEDICARE, BC ==
[2021-10-04] MEDS ORDERED: Morphine 2 MG/ML SYRINGE IVPUSH ONE (13:46)
[2021-10-04] MEDS ORDERED: Sodium Chloride 0.9% 10 ML Syringe FLUSH PRN (13:46)
[2021-10-04] MEDS ORDERED: Morphine 2 MG/ML SYRINGE ONE (14:08)
== END 2021-10-04 14:50 | disposition home or self-care (01) ==
LOC: LB.ED 13:35
DX: K40.91 Unilateral inguinal hernia, without obstruction or gangrene, recurrent (principal); I48.91 Unspecified atrial fibrillation; E78.00 Pure hypercholesterolemia, unspecified; K21.9 Gastro-esophageal reflux disease without esophagitis; Z79.82 Long term (current) use of aspirin; Z95.5 Presence of coronary angioplasty implant and graft
CPT/HCPCS: 96374; 99282; 99283; J2270; J3490

== ENCOUNTER 2022-11-17 15:56 | Emergency (ER) | payer MEDICARE, BC ==
[2022-11-17] MEDS ORDERED: Sodium Chloride 0.9% 10 ML Syringe FLUSH PRN (16:02)
[2022-11-17 16:13] LABS: HEMATOCRIT 37.7 % (40.0-54.0); HEMOGLOBIN 12.7 g/dL (13.0-18.0); MEAN CORPUSCULAR HGB CONC 33.7 g/dL (31.0-35.0); MEAN PLATELET VOLUME 9.3 fL (6.0-10.0); RED BLOOD CELL COUNT 4.54 M/uL (4.50-6.50); RED CELL DISTRIBUTION WIDTH 14.7 % (11.0-16.0); WHITE BLOOD CELL COUNT,WBC 6.3 K/uL (4.0-11.0)
[2022-11-17 16:32] LABS: PHOSPHORUS 2.5 mg/dL (2.5-4.9)
[2022-11-17 16:37] LABS: ANION GAP 13.3 mmol/L (5.0-15.0); BLOOD UREA NITROGEN,BUN 29 mg/dL (8-26); BUN/CREATININE RATIO 14.2 (6-25); CALCIUM 8.9 mg/dL (8.5-10.1); CARBON DIOXIDE,CO2 26.3 mmol/L (21.0-32.0); CHLORIDE,CL 107 mmol/L (98-107); CREATININE 2.04 mg/dL (0.70-1.30); ESTIMATED GFR 31 mL/min (>60); GLUCOSE RANDOM 118 mg/dL (74-100); POTASSIUM,K 3.6 mmol/L (3.5-5.1); SODIUM,NA 143 mmol/L (136-145); TROPONIN I HIGH SENSITIVITY 9.3 pg/ml (<=60.4)
[2022-11-17] MEDS ORDERED: Sodium Chloride 0.9% 1,000 ML IV SCH (17:15)
== END 2022-11-17 19:50 ==
LOC: LB.ED 15:56
DX: G45.9 Transient cerebral ischemic attack, unspecified (principal); R00.1 Bradycardia, unspecified; I48.91 Unspecified atrial fibrillation; E78.00 Pure hypercholesterolemia, unspecified; Z79.82 Long term (current) use of aspirin; Z79.01 Long term (current) use of anticoagulants; Z79.899 Other long term (current) drug therapy
CPT/HCPCS: 36415; 70450; 71045; 80048; 83735; 84100; 84484; 85027; 93005; 99285; J7030; 93010; A0425; A0429